=== PATIENT | male | born 1955 | race Caucasian/White ===

== ENCOUNTER 2018-01-11 22:29 | Emergency (ER) | payer MEDICARE ==
[~2018-01-11] VITALS: Ht 180.3 cm; Wt 81.7 kg
[~2018-01-11 22:29] MED LIST: DOK250 MG PO; FLOMAX0.4 MG PO; HYDROCODON-ACE1 EA11 PO; KEFLEX500 MG PO; OXYCODONE HCL5 MG PO; XARELTO10 MG PO
[2018-01-11] MEDS ORDERED: METOPROLOL SUCC50 MG PO (22:42)
[2018-01-11] MEDS ORDERED: HYDROCHLOROTHIA25 MG PO (22:42)
[2018-01-11] MEDS ORDERED: TAMSULOSIN HCL0.4 MG PO (22:42)
[2018-01-11] MEDS ORDERED: ATORVASTATIN CA10 MG PO (22:43)
[2018-01-11] MEDS ORDERED: CEPHALEXIN500 MG PO (23:26)
== END 2018-01-11 23:32 | disposition home or self-care (01) ==
LOC: ED 22:29
PROC: 2Y41X5Z Packing of Nasal Region using Packing Material (ICD-10-PCS; principal; 2018-01-11)
DX: R04.0 Epistaxis (principal); I10 Essential (primary) hypertension; F17.200 Nicotine dependence, unspecified, uncomplicated; Z79.899 Other long term (current) drug therapy
CPT/HCPCS: 30903; 99282

== ENCOUNTER 2018-09-07 16:11 | Emergency (ER) | payer MEDICARE ==
[~2018-09-07] VITALS: Ht 180.3 cm; Wt 81.7 kg
[~2018-09-07 16:11] MED LIST changes: +ATORVASTATIN CA10 MG PO; +CEPHALEXIN500 MG PO; +HYDROCHLOROTHIA25 MG PO; +METOPROLOL SUCC50 MG PO; +TAMSULOSIN HCL0.4 MG PO
[2018-09-07] MEDS ORDERED: DULOXETINE HCL20 MG PO (17:05)
== END 2018-09-07 18:38 | disposition home or self-care (01) ==
LOC: ED 16:11
DX: T84.021A Dislocation of internal left hip prosthesis, initial encounter (principal); X58.XXXA Exposure to other specified factors, initial encounter; F17.200 Nicotine dependence, unspecified, uncomplicated; Z91.048 Other nonmedicinal substance allergy status; Z79.899 Other long term (current) drug therapy
CPT/HCPCS: 72170; 73501; 73502; 99283-25; J2704

== ENCOUNTER 2019-06-23 06:25 | Day surgery (SDC) | payer MEDICARE ==
[~2019-06-23] VITALS: Ht 180.3 cm; Wt 90.7 kg
[~2019-06-23 06:25] MED LIST changes: +DULOXETINE HCL20 MG PO
--- NOTE | 2019-06-23 08:09 | NUR ---
PT RESTING IN BED, ALERT AND ORIENTED. PT SUPPORTED BY HIS AND IS READY TO EAT. FIRST SCOPE, SEEMED PREPARED, HAD FEW QUESTIONS. PT REQUESTED PRAYER AND WILL FOLLOW NEEDED
--- NOTE | 2019-06-23 08:29 | NUR ---
06/23/19 0829 Mickie,Roxy 0817 PT ARRIVED TO PACU ON 2L VIA NC, VSS. PT WAKES EASILY TO VERBAL STIMULI AND DENIES PAIN AND NAUSEA. PT ENCOURAGED TO PASS GAS AND PT ABLE TO PASS GAS/AIR. 0819 O2 TURNED OFF. 0825 MD AT BEDSIDE TALKING TO PT. 0826 PT ROLLED TO BACK AND HOB INCREASED.
--- NOTE | 2019-06-24 09:09 | OR ---
[facility] [address] [place], [place] [address] Signed DATE OF OPERATION: 06/23/2019 SURGEON: Td Machuca MD PREOPERATIVE DIAGNOSIS: Colon screening. POSTOPERATIVE DIAGNOSIS: Multiple polyps. PROCEDURE: Total colonoscopy to cecum with snare polypectomy x2 and cold morcellation polypectomy times 3+. ANESTHESIA: Intravenous sedation with fentanyl 200 mcg and Versed 5 mg. INDICATION: This 64-year-old white man is a patient of Dr. Blackman and has never undergone colon screening. He has an uncertain family history regarding colon cancer. He is admitted at this time to undergo screening colonoscopy understanding risks of bleeding, infection, and perforation. FINDINGS: The prep was excellent. Complete colonoscopy was undertaken of the cecum. He had scattered diverticula, but no sign of obstructive problem from them. He had multiple polyps including one at 42 cm, 25, 18, 12, and several hyperplastic polyps of the rectum. DESCRIPTION OF PROCEDURE: The patient was brought to Endoscopy Suite, placed in lateral decubitus position, and given intravenous sedation to the point of slurred speech and nystagmus with full cardiopulmonary monitoring. Digital rectal examination was normal. An Olympus video colonoscope was passed in the rectum and manipulated throughout the colon noting diverticular changes of the sigmoid and left colon. The scope was ultimately advanced to the cecum. The ileocecal valve and appendiceal orifice were normal. Scope was withdrawn from that point and examination was normal up until about 42 cm from the anal verge where a linear sessile hyperplastic appearing polyp was noted. This was excised with hot snare polypectomy technique. The specimen was later Electronically Signed By: TD MACHUCA MD 06/24/19 0909 PATIENT NAME: LANDEN MEJÍA OPERATIVE REPORT DATE OF : 57 REPORT #: [id number] PHYSICIAN: TD MACHUCA MD PCP: JOSHUA BLACKMAN MD REPORT IS CONFIDENTIAL AND NOT TO BE RELEASED WITHOUT AUTHORIZATION [facility] [address] [place], [place] [address] Signed recovered. The scope was further withdrawn and at 25 cm, a sessile polyp, that looked adenomatous, was noted. This was excised with hot snare polypectomy technique as well. Further withdrawal showed a smaller polyp at 18 cm and excised with cold morcellation technique; another similar one at 12 cm, similarly excised; and several hyperplastic polyps of the rectum, all excised with cold morcellation technique. Retroflexed view of the rectum was otherwise normal. The scope was removed and the patient taken to recovery room in good condition. CONCLUDING DIAGNOSIS: Multiple polyps. PLAN: Recommend repeat colonoscopy in one year due to the number of polyps. If at that time there is no evidence of polyps, then he can go several years without surveillance. MD BRYAN Charles/BRYANT /[id number] cc: Joshua Blackman MD Copies: JOSHUA BLACKMAN MD ~ Electronically Signed By: TD MACHUCA MD 06/24/19 0909 PATIENT NAME: LANDEN MEJÍA OPERATIVE REPORT DATE OF : 57 REPORT #: [id number] PHYSICIAN: TD MACHUCA MD PCP: JOSHUA BLACKMAN MD REPORT IS CONFIDENTIAL AND NOT TO BE RELEASED WITHOUT AUTHORIZATION
--- NOTE | 2019-06-26 16:44 | PATH ---
[facility] [address] [facility] [place] [place] [address] Signed SPECIMEN(S): A COLON POLYP AT 25 CM SPECIMEN(S): B COLON POLYP AT 18 CM SPECIMEN(S): C COLON POLYP AT 12 CM SPECIMEN(S): D RECTAL POLYP SPECIMEN(S): E SIGMOID POLYP AT 42 CM SPECIMEN SOURCE: A. COLON POLYP AT 25 CM B. COLON POLYP AT 18 CM C. COLON POLYP AT 12 CM D. RECTAL POLYP E. SIGMOID POLYP AT 42 CM CLINICAL HISTORY: Screening. Postop DX: Polyps. MICROSCOPIC DESCRIPTION: Histologic sections of all submitted blocks are examined by light microscopy. These findings, together with the gross examination, support the pathologic diagnosis. FINAL PATHOLOGIC DIAGNOSIS: A. Mucosa, colon at 25 cm, biopsy: - Hyperplastic polyp. B. Mucosa, colon at 18 cm, biopsy: - Tubular adenoma. C. Mucosa, colon at 12 cm, biopsy: - Hyperplastic polyp. D. Mucosa, rectum, biopsy: - Hyperplastic polyp. E. Mucosa, sigmoid colon at 42 cm, biopsy: - Hyperplastic polyp. LJA:cml:C2NR GROSS DESCRIPTION: Five specimens are received in five containers, labeled "RS." A. The specimen, labeled "RS, #1" and "colon polyp at 25 cm" on the requisition, is received in formalin and consists of a 0.3 cm soft sanchez tissue fragment that is submitted in toto in cassette (A1). B. The specimen, labeled "RS, #2" and "colon polyp at 18 cm" on the requisition, is received in formalin and consists of a 0.6 x 0.4 x 0.3 cm soft sanchez-red smooth polypoid portion of tissue that is PATIENT NAME: LANDEN MEJÍA PATHOLOGY DATE OF : 57 REPORT #: [id number] PHYSICIAN: JEREMIAS CAMPOS PCP: ROXI PERES MD REPORT IS CONFIDENTIAL AND NOT TO BE RELEASED WITHOUT AUTHORIZATION [facility] [address] [facility] [place] [address] Signed marked with blue ink, bisected, and entirely submitted in cassette (B1). C. The specimen, labeled "RS, #3" and "colon polyp at 12 cm" on the requisition, is received in formalin and consists of a 0.3 cm soft sanchez tissue fragment that is submitted in toto in cassette (C1). D. The specimen, labeled "RS, #4" and "rectal polyp" on the requisition, is received in formalin and consists of four soft sanchez tissue fragments that vary from 0.1 to 0.3 cm and are submitted in toto in cassette (D1). E. The specimen, labeled "RS, #5" and "sigmoid polyp at 42 cm" on the requisition, is received in formalin and consists of a 0.5 x 0.3 x 0.3 cm soft pale red smooth polypoid portion of tissue that is marked with blue ink, bisected, and entirely submitted in cassette (E1). SS (under the direct supervision of a pathologist) The Gross Description was prepared using a voice recognition system. The report was reviewed for accuracy; however, sound-alike word errors, addition and/or deletions may occur. If there is any question about this report, please contact Client Services. PERFORMING LABORATORY: The technical component was performed by [facility], [address] [place] [id number] (Fell Cutter: Elaine Worthy MD; CLIA# [id number]). Professional interpretation was performed by [facility], [facility], [address] [place] [address] (CLIA# [id number]). Diagnostician: Roger Delaney MD Pathologist Electronically Signed 06/26/2019 Copies: ~ PATIENT NAME: LANDEN MEJÍA PATHOLOGY DATE OF : 57 REPORT #: [id number] PHYSICIAN: JEREMIAS PATHOLOGY PCP: ROXI PERES MD REPORT IS CONFIDENTIAL AND NOT TO BE RELEASED WITHOUT AUTHORIZATION
== END 2019-06-23 08:47 | disposition home or self-care (01) ==
LOC: DS 06:25 → OPS 06:25 → DS 06:45 → OPS 06:45
PROVIDERS: Surgery
PROC: 0DBN8ZZ Excision of Sigmoid Colon, Via Natural or Artificial Opening Endoscopic (ICD-10-PCS; 2019-06-23)
PROC: 0DBP8ZZ Excision of Rectum, Via Natural or Artificial Opening Endoscopic (ICD-10-PCS; 2019-06-23)
PROC: 0DBE8ZZ Excision of Large Intestine, Via Natural or Artificial Opening Endoscopic (ICD-10-PCS; principal; 2019-06-23 06:45)
DX: Z12.11 Encounter for screening for malignant neoplasm of colon (principal); D12.6 Benign neoplasm of colon, unspecified; K63.5 Polyp of colon; K62.1 Rectal polyp; K57.30 Diverticulosis of large intestine without perforation or abscess without bleeding; F32.9 Major depressive disorder, single episode, unspecified; I10 Essential (primary) hypertension; F17.210 Nicotine dependence, cigarettes, uncomplicated; J45.909 Unspecified asthma, uncomplicated; Z79.899 Other long term (current) drug therapy
CPT/HCPCS: 99153; G0500; J0690; J2250; J3010; J7121

== ENCOUNTER 2020-09-05 17:44 | Emergency (ER) | payer MEDICARE ==
[~2020-09-05] VITALS: Ht 180.3 cm; Wt 90.7 kg
== END 2020-09-05 20:00 | disposition short-term general hospital (02) ==
LOC: ED 17:44
DX: T84.021A Dislocation of internal left hip prosthesis, initial encounter (principal); I10 Essential (primary) hypertension; F17.200 Nicotine dependence, unspecified, uncomplicated; Z91.048 Other nonmedicinal substance allergy status; Z79.899 Other long term (current) drug therapy
CPT/HCPCS: 72170; 73502; 80053; 85025; 99152; 99284-25; J2704; J3010

== ENCOUNTER 2025-02-07 08:04 | Emergency (ER) | payer OTHER, MEDICARE ==
[~2025-02-07] VITALS: Ht 180.3 cm; Wt 81.0 kg
[2025-02-07] MEDS ORDERED: METOPROLOL SUC100 MG PO (08:21)
[2025-02-07] MEDS ORDERED: DULOXETINE HCL60 MG PO (08:22)
[2025-02-07] MEDS ORDERED: SODIUM CHLORIDE 0.9% 1,000 ML IV PRN (08:45)
[2025-02-07 10:20] VITALS: BP 108/67
== END 2025-02-12 10:20 | disposition home or self-care (01) ==
LOC: ED 08:04
DX: T84.021A Dislocation of internal left hip prosthesis, initial encounter (principal); I10 Essential (primary) hypertension; J44.9 Chronic obstructive pulmonary disease, unspecified; F17.200 Nicotine dependence, unspecified, uncomplicated; Z91.048 Other nonmedicinal substance allergy status; Z79.899 Other long term (current) drug therapy; X50.0XXA Overexertion from strenuous movement or load, initial encounter
CPT/HCPCS: 27265; 73501; 73502; 94799; 99152; 99153; 99284-25; J2704; J7030